=== PATIENT | female | born 1950 | race Caucasian/White ===

== ENCOUNTER → 2017-03-30 | Outpatient (CLI) | payer MEDICARE ==
[2017-03-30 17:50] LABS: EOS # 0.1 (0.04-0.40); EOS % 0.7 % (1.0-5.0); HEMATOCRIT 29.3 % (37.0-47.0); HEMOGLOBIN 9.6 g/dL (12.5-16.0); LYMPH# 2.2 (1.50-4.00); MEAN CELL VOLUME 75 fl (78-100); MEAN CORPUSCULAR HGB CONC 33 g/dL (33-37); MEAN PLATELET VOLUME 10.4 fl (7.4-10.4); MONO # 0.9 (0.20-0.80); NEU # 4.5 (1.40-6.50); RED BLOOD COUNT 3.93 M/mm3 (4.10-5.30); RED CELL DISTRIBUTION WIDTH 17.2 % (11.5-14.5); WHITE BLOOD COUNT 7.7 K/mm3 (4.8-10.8)
[2017-03-30 17:52] LABS: MEAN CORPUSCULAR HEMOGLOBIN 24 pg (27-31); PLATELET COUNT 760 K/mm3 (130-400)
[2017-03-30 17:59] LABS: ALBUMIN 2.7 g/dL (3.5-5.0); BUN/CREATININE RATIO 38.2 (6.0-26.0); CALCIUM 8.6 mg/dL (8.4-10.2); POTASSIUM 4.7 mmol/L (3.6-5.0); TOTAL BILIRUBIN 0.5 mg/dL (0.2-1.3); TOTAL PROTEIN 6.1 g/dL (6.3-8.2)
== END ==
LOC: LAB 17:14
DX: C78.6 Secondary malignant neoplasm of retroperitoneum and peritoneum (principal)

== ENCOUNTER → 2017-04-06 | Outpatient (CLI) | payer MEDICARE ==
[2017-04-06 15:35] LABS: HEMATOCRIT 26.6 % (37.0-47.0); HEMOGLOBIN 8.5 g/dL (12.5-16.0); MEAN CELL VOLUME 75 fl (78-100); MEAN CORPUSCULAR HGB CONC 32 g/dL (33-37); MEAN PLATELET VOLUME 10.7 fl (7.4-10.4); RED BLOOD COUNT 3.57 M/mm3 (4.10-5.30); RED CELL DISTRIBUTION WIDTH 17.7 % (11.5-14.5); WHITE BLOOD COUNT 6.5 K/mm3 (4.8-10.8)
[2017-04-06 16:20] LABS: ALBUMIN 2.5 g/dL (3.5-5.0); BUN/CREATININE RATIO 53.5 (6.0-26.0); CALCIUM 8.2 mg/dL (8.4-10.2); POTASSIUM 4.6 mmol/L (3.6-5.0); TOTAL BILIRUBIN 0.5 mg/dL (0.2-1.3); TOTAL PROTEIN 5.9 g/dL (6.3-8.2)
[2017-04-06 18:24] LABS: MEAN CORPUSCULAR HEMOGLOBIN 24 pg (27-31); PLATELET COUNT 727 K/mm3 (130-400)
[2017-04-06 18:25] LABS: LYMPHOCYTE 18 % (20-51); NEUTROPHILS 70 % (42-75)
[2017-04-06 18:26] LABS: MONOCYTE 11 % (3-10)
== END ==
LOC: LAB 15:09
DX: C78.6 Secondary malignant neoplasm of retroperitoneum and peritoneum (principal)

== ENCOUNTER → 2017-04-21 | Outpatient (CLI) | payer MEDICARE ==
[2017-04-21 13:37] LABS: HEMATOCRIT 28.2 % (37.0-47.0); HEMOGLOBIN 8.9 g/dL (12.5-16.0); MEAN CELL VOLUME 75 fl (78-100); MEAN CORPUSCULAR HGB CONC 32 g/dL (33-37); MEAN PLATELET VOLUME 10.8 fl (7.4-10.4); RED BLOOD COUNT 3.74 M/mm3 (4.10-5.30); WHITE BLOOD COUNT 5.7 K/mm3 (4.8-10.8)
[2017-04-21 13:44] LABS: ALBUMIN 2.8 g/dL (3.5-5.0); BUN/CREATININE RATIO 56.2 (6.0-26.0); CALCIUM 8.4 mg/dL (8.4-10.2); POTASSIUM 3.9 mmol/L (3.6-5.0); TOTAL BILIRUBIN 0.4 mg/dL (0.2-1.3); TOTAL PROTEIN 6.3 g/dL (6.3-8.2)
[2017-04-21 14:15] LABS: MEAN CORPUSCULAR HEMOGLOBIN 24 pg (27-31); PLATELET COUNT 664 K/mm3 (130-400); RED CELL DISTRIBUTION WIDTH 18.6 % (11.5-14.5)
[2017-04-21 14:16] LABS: LYMPHOCYTE 38 % (20-51); MONOCYTE 13 % (3-10); NEUTROPHILS 45 % (42-75)
[2017-04-21 14:17] LABS: HYPOCHROMIA 2+; MICROCYTOSIS 1+
== END ==
LOC: LAB 13:11
DX: C78.6 Secondary malignant neoplasm of retroperitoneum and peritoneum (principal)

== ENCOUNTER → 2017-05-11 | Outpatient (CLI) | payer MEDICARE ==
[2017-05-11 14:08] LABS: HEMATOCRIT 28.6 % (37.0-47.0); HEMOGLOBIN 8.9 g/dL (12.5-16.0); MEAN CELL VOLUME 76 fl (78-100); MEAN CORPUSCULAR HGB CONC 31 g/dL (33-37); MEAN PLATELET VOLUME 11.2 fl (7.4-10.4); RED BLOOD COUNT 3.78 M/mm3 (4.10-5.30); WHITE BLOOD COUNT 6.5 K/mm3 (4.8-10.8)
[2017-05-11 14:12] LABS: ALBUMIN 2.8 g/dL (3.5-5.0); BUN/CREATININE RATIO 54.6 (6.0-26.0); CALCIUM 8.2 mg/dL (8.4-10.2); POTASSIUM 3.8 mmol/L (3.6-5.0); TOTAL BILIRUBIN 0.3 mg/dL (0.2-1.3); TOTAL PROTEIN 6.5 g/dL (6.3-8.2)
[2017-05-11 14:27] LABS: MEAN CORPUSCULAR HEMOGLOBIN 24 pg (27-31); PLATELET COUNT 624 K/mm3 (130-400); RED CELL DISTRIBUTION WIDTH 19.5 % (11.5-14.5)
[2017-05-11 14:28] LABS: LYMPHOCYTE 25 % (20-51); MONOCYTE 11 % (3-10); NEUTROPHILS 64 % (42-75)
[2017-05-11 14:29] LABS: MICROCYTOSIS 1+
[2017-05-11 14:30] LABS: TARGET CELLS 1+
== END ==
LOC: LAB 13:38
PROVIDERS: Surgery Surgical Oncology
DX: C78.6 Secondary malignant neoplasm of retroperitoneum and peritoneum (principal)

== ENCOUNTER → 2018-01-04 | Outpatient (CLI) | payer MEDICARE ==
[2018-01-04 12:17] LABS: EOS # 0.4 (0.04-0.40); EOS % 4.7 % (1.0-5.0); HEMATOCRIT 27.4 % (37.0-47.0); HEMOGLOBIN 8.5 g/dL (12.5-16.0); LYMPH# 3.4 (1.50-4.00); MEAN CELL VOLUME 80 fl (78-100); MEAN CORPUSCULAR HEMOGLOBIN 25 pg (27-31); MEAN CORPUSCULAR HGB CONC 31 g/dL (33-37); MEAN PLATELET VOLUME 10.6 fl (7.4-10.4); NEU # 3.8 (1.40-6.50); RED BLOOD COUNT 3.44 M/mm3 (4.10-5.30); WHITE BLOOD COUNT 8.7 K/mm3 (4.8-10.8)
[2018-01-04 12:21] LABS: ALBUMIN 2.7 g/dL (3.5-5.0); CALCIUM 8.1 mg/dL (8.4-10.2); POTASSIUM 4.2 mmol/L (3.6-5.0); TOTAL BILIRUBIN 0.6 mg/dL (0.2-1.3)
[2018-01-04 12:25] LABS: PLATELET COUNT 654 K/mm3 (130-400); RED CELL DISTRIBUTION WIDTH 18.5 % (11.5-14.5)
== END ==
LOC: LAB 11:41
PROVIDERS: Surgery Surgical Oncology
DX: C78.6 Secondary malignant neoplasm of retroperitoneum and peritoneum (principal)